=== PATIENT | male | born 1975 | race Caucasian/White ===

== ENCOUNTER 2018-05-15 14:08 | Emergency (ER) | payer OTHER ==
[~2018-05-15] VITALS: Ht 170.2 cm; Wt 83.0 kg
[2018-05-15 14:12] VITALS: Ht 170.2 cm; Wt 83.0 kg
[2018-05-15 16:35] LABS: BASOPHIL % 0.7 % (0-2); PLATELET COUNT 212 x10^3mcL (130-400); RED CELL DISTRIBUTION WIDTH 13.8 % (11.5-14.5)
[2018-05-15 16:44] LABS: CALCIUM 8.5 mg/dL (8.5-10.1); CARBON DIOXIDE 28.1 mmol/L (21-32); CHLORIDE SERUM 105 mmol/L (98-107); CREATININE SERUM 1.1 mg/dL (0.7-1.3); GFR1 > 60 mL/min; GLUCOSE SERUM 105 mg/dL (74-106); POTASSIUM SERUM 3.6 mmol/L (3.5-5.1); SODIUM SERUM 139 mmol/L (136-145)
[2018-05-15 16:50] LABS: ALBUMIN 4.2 g/dL (3.4-5.0); ALKALINE PHOSPHATASE 57 U/L (46-116); ALT/SGPT 27 U/L (16-63); AST/SGOT 11 U/L (15-37); BILIRUBIN TOTAL 0.36 mg/dL (0.20-1.00); HDL CHOLESTEROL 41 mg/dL (40-60); LIPASE 244 IU/L (73-393); TOTAL PROTEIN, SERUM 7.5 g/dL (6.4-8.2); TRIGLYCERIDES 98 mg/dL (<150)
[2018-05-15 16:51] LABS: CHOLESTEROL 127 mg/dL (<200); CHOLESTEROL/HDL RATIO 3.1
[2018-05-15 16:56] LABS: FREE T4 0.72 ng/dL (0.76-1.46)
[2018-05-15 16:57] LABS: FREE THYROXINE INDEX 1.7 ug/dL (1.4-4.5); T3 TOTAL 0.94 ng/mL; T4(THYROXINE) 4.5 ug/dL (4.7-13.3)
[2018-05-15 17:00] LABS: microscopic required? NO
[2018-05-15 17:08] LABS: UA SPECIFIC GRAVITY 1.015 (1.005-1.035); urine erythrocyte NEGATIVE (NEGATIVE)
[2018-05-15 17:17] LABS: AMPHETAMINE QUAL UR NONE DETECTED (See below)
[2018-05-15 20:26] VITALS: BP 128/73
== END 2018-05-15 20:26 | disposition home or self-care (01) ==
LOC: ED 14:08
PROVIDERS: Specialist
DX: R07.89 Other chest pain (principal); M54.6 Pain in thoracic spine; R53.1 Weakness; Z98.890 Other specified postprocedural states
CPT/HCPCS: 36415; 83880; 84439; J1885; Q0092